=== PATIENT | female | born 1990 | race Caucasian/White ===

== ENCOUNTER 2017-03-14 09:16 | Emergency (ER) | payer OTHER ==
[~2017-03-14] VITALS: Ht 157.4 cm; Wt 61.7 kg
[~2017-03-14 09:16] MED LIST: BIRTH CONTROL1 EAC1 PO; CLARITIN5 MG/5 ML PO; DOXYCYCLINE100 M3 PO; METHERGINE0.2 MG PO; MOTRIN,RUFEN800 MG PO; NKHM PO; PERCOCET 325 MG1 TA1 PO; PRENATAL1 TA7 PO
[2017-03-14] MEDS ORDERED: CLARITIN10 MG PO (09:33)
[2017-03-14] MEDS ORDERED: KEFLEX500 M1 PO (09:46)
[2017-03-14] MEDS ORDERED: BACTRIM DS 8001 TA1 PO (09:46)
== END 2017-03-14 11:00 | disposition home or self-care (01) ==
LOC: ED 09:16
DX: L02.411 Cutaneous abscess of right axilla (principal); F17.200 Nicotine dependence, unspecified, uncomplicated; Z79.899 Other long term (current) drug therapy

== ENCOUNTER 2018-07-07 10:37 | Emergency (ER) | payer OTHER ==
[~2018-07-07] VITALS: Ht 157.4 cm; Wt 60.8 kg
[~2018-07-07 10:37] MED LIST changes: +BACTRIM DS 8001 TA1 PO; +CLARITIN10 MG PO; +KEFLEX500 M1 PO
[2018-07-07] MEDS ORDERED: ZITHROMAX250 MG PO (11:32)
== END 2018-07-07 11:47 | disposition home or self-care (01) ==
LOC: ED 10:37
DX: J40 Bronchitis, not specified as acute or chronic (principal)

== ENCOUNTER 2019-02-25 04:30 | Emergency (ER) | payer OTHER ==
[~2019-02-25] VITALS: Ht 157.4 cm; Wt 60.8 kg
[~2019-02-25 04:30] MED LIST changes: +ZITHROMAX250 MG PO
[2019-02-25] MEDS ORDERED: PENICILLIN-VK500 M1 PO (05:50)
== END 2019-02-25 05:50 | disposition home or self-care (01) ==
LOC: ED 04:30
DX: K02.9 Dental caries, unspecified (principal); F17.200 Nicotine dependence, unspecified, uncomplicated

== ENCOUNTER 2023-06-16 08:59 | Emergency (ER) | payer SELFPAY ==
[~2023-06-16] VITALS: Ht 157.4 cm; Wt 65.8 kg
[~2023-06-16 08:59] MED LIST changes: +PENICILLIN-VK500 M1 PO
[2023-06-16 09:46] LABS: BILIRUBIN Negative (Negative); BLOOD Negative (Negative); CLARITY Clear (Clear); COLOR Yellow (Yellow); GLUCOSE Negative (Negative); KETONE Negative (Negative); LEUKO ESTERASE Negative (Negative); NITRITE Negative (Negative); PH 6.5 (4.5-8.0); SPECIFIC GRAVITY <= 1.005 (1.001-1.030); UROBILINOGEN 0.2 E.U./dl (0.0-1.0)
[2023-06-16 09:54] LABS: WBC 0-2 wbc/hpf (0-5)
[2023-06-16 09:55] LABS: BACTERIA 3+
[2023-06-16 10:08] LABS: BASO # 0.1 10*3/uL (0.0-0.1); BASO % 0.8 % (0.0-1.0); EOS % 0.4 % (1.0-4.0); LYMPH # 1.4 10*3/uL (1.3-4.4); LYMPH % 15.1 % (27.0-41.0); MEAN CELL VOLUME 99.5 fl (81.0-99.0); MEAN CORPUSCULAR HGB 33.8 pg (27.0-31.0); MEAN PLATELET VOLUME 10.1 fl (9.6-12.3); MONO # 0.6 10*3/uL (0.1-1.0); MONO % 6.5 % (3.0-9.0); NEUT # 6.9 10*3/uL (2.3-7.9); NEUT % 76.9 % (47.0-73.0); PLATELET COUNT AUTOMATED 230 10*3/uL (130-400); RED BLOOD COUNT 4.32 10*6/uL (4.10-5.10); RED CELL DISTRI WIDTH 12.7 % (0-14.5)
[2023-06-16 10:35] LABS: ALKALINE PHOSPHATASE 57 U/L (46-116); BUN 10 mg/dl (9-23); CHLORIDE 112 mmol/L (98-107); LIPASE 24 U/L (12-53); POTASSIUM 3.4 mmol/L (3.4-5.1); SGPT/ALT 23 U/L (10-49)
[2023-06-16 10:36] LABS: BETA-HCG, QUANT < 3.0 mIU/mL (3-10)
[2023-06-16] MEDS ORDERED: ONDANSETRON4 MG SL (18:06)
[2023-06-16] MEDS ORDERED: MECLIZINE HCL25 M2 PO (18:06)
== END 2023-06-16 18:41 | disposition home or self-care (01) ==
LOC: ED 08:59
PROVIDERS: Emergency Medicine
DX: R42 Dizziness and giddiness (principal); R11.0 Nausea; F41.9 Anxiety disorder, unspecified; R20.2 Paresthesia of skin; J45.909 Unspecified asthma, uncomplicated; Z98.890 Other specified postprocedural states; Z79.899 Other long term (current) drug therapy

== ENCOUNTER 2023-08-20 16:33 | Emergency (ER) | payer MEDICAID ==
[~2023-08-20] VITALS: Ht 157.4 cm; Wt 63.5 kg
[~2023-08-20 16:33] MED LIST changes: +MECLIZINE HCL25 M2 PO; +ONDANSETRON4 MG SL
[2023-08-20] MEDS ORDERED: AMOX-CLAV 875-1 EACH PO ×2 (21:35)
== END 2023-08-20 21:33 | disposition home or self-care (01) ==
LOC: ED 16:33
DX: J32.9 Chronic sinusitis, unspecified (principal); H92.02 Otalgia, left ear; F41.9 Anxiety disorder, unspecified; Z98.890 Other specified postprocedural states

== ENCOUNTER 2023-08-22 14:17 | Emergency (ER) | payer MEDICAID ==
[~2023-08-22] VITALS: Ht 157.4 cm; Wt 63.5 kg
[~2023-08-22 14:17] MED LIST changes: +AMOX-CLAV 875-1 EACH PO
[2023-08-22 16:52] LABS: BASO # 0.1 10*3/uL (0.0-0.1); BASO % 0.7 % (0.0-1.0); EOS % 0.3 % (1.0-4.0); HEMATOCRIT 42.5 % (37.0-47.0); LYMPH # 2.3 10*3/uL (1.3-4.4); LYMPH % 25.5 % (27.0-41.0); MEAN CELL VOLUME 97.9 fl (81.0-99.0); MEAN CORPUSCULAR HGB 33.4 pg (27.0-31.0); MEAN CORPUSCULAR HGB CONC 34.1 g/dl (33.0-37.0); MEAN PLATELET VOLUME 10.2 fl (9.6-12.3); MONO # 0.7 10*3/uL (0.1-1.0); MONO % 7.8 % (3.0-9.0); NEUT # 5.9 10*3/uL (2.3-7.9); NEUT % 65.4 % (47.0-73.0); PLATELET COUNT AUTOMATED 227 10*3/uL (130-400); RED BLOOD COUNT 4.34 10*6/uL (4.10-5.10); RED CELL DISTRI WIDTH 11.7 % (0-14.5)
[2023-08-22 17:19] LABS: ALKALINE PHOSPHATASE 58 U/L (46-116); BUN 10 mg/dl (9-23); CHLORIDE 109 mmol/L (98-107); POTASSIUM 3.8 mmol/L (3.4-5.1); SGPT/ALT 12 U/L (5-49); TOTAL PROTEIN 7.3 gm/dL (6.0-8.0)
[2023-08-22 17:44] LABS: BILIRUBIN Negative (Negative); BLOOD Trace-Intact (Negative); CLARITY Clear (Clear); COLOR Yellow (Yellow); GLUCOSE Negative (Negative); KETONE Negative (Negative); LEUKO ESTERASE Negative (Negative); NITRITE Negative (Negative); SPECIFIC GRAVITY 1.015 (1.001-1.030); UROBILINOGEN 0.2 E.U./dl (0.0-1.0)
[2023-08-22 17:53] LABS: EPITHELIAL CELLS 16-20
[2023-08-22 17:54] LABS: BACTERIA TRACE
== END 2023-08-22 18:21 | disposition home or self-care (01) ==
LOC: ED 14:17
PROVIDERS: Nurse Practitioner
DX: J32.9 Chronic sinusitis, unspecified (principal); H92.01 Otalgia, right ear; R51.9 Headache, unspecified; M54.2 Cervicalgia; R30.0 Dysuria; F41.9 Anxiety disorder, unspecified; Z98.890 Other specified postprocedural states

== ENCOUNTER → 2023-09-14 | Outpatient (CLI) | payer MEDICAID | END | disposition home or self-care (01) | LOC: RAD 10:30 | PROVIDERS: ATTEND Nurse Practitioner Family | DX: M54.2 Cervicalgia (principal) ==

== ENCOUNTER → 2023-09-29 | Outpatient (CLI) | payer MEDICAID ==
[~2023-09-29] MED LIST changes: +CLARITIN-D 121 EACH PO; +FLONASE ALLERG9.9 ML NAS; +VIBRAMYCIN HYC100 MG PO
== END | disposition home or self-care (01) ==
LOC: MRI 00:34
PROVIDERS: ATTEND Internal Medicine
DX: R00.0 Tachycardia, unspecified (principal); R55 Syncope and collapse

== ENCOUNTER 2023-10-05 14:30 | Emergency (ER) | payer MEDICAID ==
[~2023-10-05] VITALS: Ht 157.4 cm; Wt 59.0 kg
[~2023-10-05 14:30] MED LIST changes: -CLARITIN-D 121 EACH PO; -FLONASE ALLERG9.9 ML NAS; -VIBRAMYCIN HYC100 MG PO
[2023-10-05] MEDS ORDERED: FLONASE ALLERG9.9 ML NAS (15:16)
[2023-10-05] MEDS ORDERED: CLARITIN-D 121 EACH PO (15:16)
[2023-10-05 17:15] LABS: BASO # 0.1 10*3/uL (0.0-0.1); BASO % 0.8 % (0.0-1.0); EOS # 0.1 10*3/uL (0.0-0.4); EOS % 0.8 % (1.0-4.0); HEMATOCRIT 41.5 % (37.0-47.0); LYMPH # 2.3 10*3/uL (1.3-4.4); MEAN CELL VOLUME 99.8 fl (81.0-99.0); MEAN CORPUSCULAR HGB 33.4 pg (27.0-31.0); MEAN CORPUSCULAR HGB CONC 33.5 g/dl (33.0-37.0); MEAN PLATELET VOLUME 9.7 fl (9.6-12.3); MONO # 0.6 10*3/uL (0.1-1.0); NEUT # 4.9 10*3/uL (2.3-7.9); NEUT % 62.1 % (47.0-73.0); PLATELET COUNT AUTOMATED 225 10*3/uL (130-400); RED BLOOD COUNT 4.16 10*6/uL (4.10-5.10); RED CELL DISTRI WIDTH 11.7 % (0-14.5); WHITE BLOOD COUNT 7.9 10*3/uL (4.8-10.8)
[2023-10-05 17:39] LABS: ALKALINE PHOSPHATASE 53 U/L (46-116); BUN 13 mg/dl (9-23); CHLORIDE 110 mmol/L (98-107); POTASSIUM 3.5 mmol/L (3.4-5.1); SGPT/ALT 7 U/L (5-49)
[2023-10-05] MEDS ORDERED: VIBRAMYCIN HYC100 MG PO (20:33)
== END 2023-10-05 21:02 | disposition home or self-care (01) ==
LOC: ED 14:30
PROVIDERS: Physician Assistant Medical
DX: J18.9 Pneumonia, unspecified organism (principal); J32.0 Chronic maxillary sinusitis; F41.9 Anxiety disorder, unspecified; Z98.890 Other specified postprocedural states

== ENCOUNTER → 2023-10-12 | Outpatient (CLI) | payer MEDICAID ==
[~2023-10-12] MED LIST changes: +CLARITIN-D 121 EACH PO; +FLONASE ALLERG9.9 ML NAS; +VIBRAMYCIN HYC100 MG PO
== END | disposition home or self-care (01) ==
LOC: RAD 12:16
PROVIDERS: ATTEND Internal Medicine
DX: J18.9 Pneumonia, unspecified organism (principal)

== ENCOUNTER 2023-10-22 10:21 | Emergency (ER) | payer MEDICAID ==
[~2023-10-22] VITALS: Ht 157.4 cm; Wt 58.1 kg
[2023-10-22 10:49] LABS: BASO # 0.1 10*3/uL (0.0-0.1); BASO % 1.2 % (0.0-1.0); EOS # 0.1 10*3/uL (0.0-0.4); EOS % 1.3 % (1.0-4.0); HEMATOCRIT 42.5 % (37.0-47.0); LYMPH # 1.8 10*3/uL (1.3-4.4); LYMPH % 30.1 % (27.0-41.0); MEAN CELL VOLUME 99.1 fl (81.0-99.0); MEAN CORPUSCULAR HGB 33.3 pg (27.0-31.0); MEAN CORPUSCULAR HGB CONC 33.6 g/dl (33.0-37.0); MEAN PLATELET VOLUME 9.9 fl (9.6-12.3); MONO # 0.5 10*3/uL (0.1-1.0); MONO % 8.9 % (3.0-9.0); NEUT # 3.5 10*3/uL (2.3-7.9); NEUT % 58.2 % (47.0-73.0); PLATELET COUNT AUTOMATED 260 10*3/uL (130-400); RED BLOOD COUNT 4.29 10*6/uL (4.10-5.10); RED CELL DISTRI WIDTH 11.8 % (0-14.5); WHITE BLOOD COUNT 6.1 10*3/uL (4.8-10.8)
[2023-10-22 11:09] LABS: ALKALINE PHOSPHATASE 63 U/L (46-116); BUN 14 mg/dl (9-23); CHLORIDE 111 mmol/L (98-107); POTASSIUM 3.9 mmol/L (3.4-5.1); SGPT/ALT 9 U/L (5-49); TOTAL PROTEIN 7.4 gm/dL (6.0-8.0)
[2023-10-22 11:11] LABS: BETA-HCG, QUANT < 3.0 mIU/mL (3-10)
[2023-10-22] MEDS ORDERED: LEVOFLOXACIN500 MG PO (12:48)
== END 2023-10-22 13:06 | disposition home or self-care (01) ==
LOC: ED 10:21
PROVIDERS: Emergency Medicine
DX: H60.92 Unspecified otitis externa, left ear (principal); F41.9 Anxiety disorder, unspecified; R10.2 Pelvic and perineal pain; Z98.890 Other specified postprocedural states

== ENCOUNTER → 2023-11-04 | Outpatient (CLI) | payer MEDICAID ==
[~2023-11-04] MED LIST changes: +LEVOFLOXACIN500 MG PO
== END | disposition home or self-care (01) ==
LOC: LAB 14:37
PROVIDERS: ATTEND Internal Medicine
DX: J02.9 Acute pharyngitis, unspecified (principal)

== ENCOUNTER 2023-11-07 10:02 | Emergency (ER) | payer MEDICAID ==
[~2023-11-07] VITALS: Ht 157.4 cm; Wt 57.2 kg
[2023-11-07] MEDS ORDERED: ZYRTEC ALLERGY10 MG PO (10:27)
[2023-11-07 11:56] LABS: BASO # 0.1 10*3/uL (0.0-0.1); BASO % 0.7 % (0.0-1.0); EOS # 0.1 10*3/uL (0.0-0.4); EOS % 1.3 % (1.0-4.0); HEMATOCRIT 42.5 % (37.0-47.0); LYMPH # 1.8 10*3/uL (1.3-4.4); LYMPH % 21.2 % (27.0-41.0); MEAN CELL VOLUME 99.3 fl (81.0-99.0); MEAN CORPUSCULAR HGB 33.6 pg (27.0-31.0); MEAN CORPUSCULAR HGB CONC 33.9 g/dl (33.0-37.0); MEAN PLATELET VOLUME 9.8 fl (9.6-12.3); MONO # 0.6 10*3/uL (0.1-1.0); MONO % 7.5 % (3.0-9.0); NEUT # 5.8 10*3/uL (2.3-7.9); NEUT % 69.1 % (47.0-73.0); PLATELET COUNT AUTOMATED 208 10*3/uL (130-400); RED BLOOD COUNT 4.28 10*6/uL (4.10-5.10); RED CELL DISTRI WIDTH 12.3 % (0-14.5); WHITE BLOOD COUNT 8.4 10*3/uL (4.8-10.8)
[2023-11-07 12:19] LABS: ALKALINE PHOSPHATASE 56 U/L (46-116); BUN 8 mg/dl (9-23); CHLORIDE 111 mmol/L (98-107); SGPT/ALT 9 U/L (5-49); TOTAL PROTEIN 7.2 gm/dL (6.0-8.0)
== END 2023-11-07 13:44 | disposition home or self-care (01) ==
LOC: ED 10:02
PROVIDERS: Internal Medicine
DX: M54.2 Cervicalgia (principal); R41.0 Disorientation, unspecified; M54.50 Low back pain, unspecified; F41.9 Anxiety disorder, unspecified; Z98.890 Other specified postprocedural states; Z87.891 Personal history of nicotine dependence

== ENCOUNTER 2023-12-01 11:43 | Emergency (ER) | payer MEDICAID ==
[~2023-12-01] VITALS: Wt 56.2 kg
[~2023-12-01 11:43] MED LIST changes: +ZYRTEC ALLERGY10 MG PO
[2023-12-01] MEDS ORDERED: CLEOCIN HCL300 MG PO (11:55)
[2023-12-01] MEDS ORDERED: Acetaminophen/Hydrocodone 5 MG/325 MG TABLET PO ONE (12:05)
[2023-12-01] MEDS ORDERED: IOHEXOL 300 MG/ML 100 ML VIAL IV ONE (12:10)
[2023-12-01 12:26] LABS: BASO # 0.1 10*3/uL (0.0-0.1); BASO % 0.8 % (0.0-1.0); EOS % 0.5 % (1.0-4.0); HEMATOCRIT 42.6 % (37.0-47.0); LYMPH # 1.6 10*3/uL (1.3-4.4); LYMPH % 21.2 % (27.0-41.0); MEAN CELL VOLUME 98.6 fl (81.0-99.0); MEAN CORPUSCULAR HGB 33.1 pg (27.0-31.0); MEAN CORPUSCULAR HGB CONC 33.6 g/dl (33.0-37.0); MEAN PLATELET VOLUME 10.2 fl (9.6-12.3); MONO # 0.5 10*3/uL (0.1-1.0); MONO % 6.9 % (3.0-9.0); NEUT # 5.3 10*3/uL (2.3-7.9); NEUT % 70.5 % (47.0-73.0); PLATELET COUNT AUTOMATED 217 10*3/uL (130-400); RED BLOOD COUNT 4.32 10*6/uL (4.10-5.10); RED CELL DISTRI WIDTH 11.6 % (0-14.5); WHITE BLOOD COUNT 7.6 10*3/uL (4.8-10.8)
[2023-12-01 12:44] LABS: BUN 9 mg/dl (9-23); CHLORIDE 107 mmol/L (98-107); POTASSIUM 3.6 mmol/L (3.4-5.1)
[2023-12-01] MEDS ORDERED: CLINDAMYCIN HC300 MG PO (14:38)
== END 2023-12-01 14:41 | disposition home or self-care (01) ==
LOC: ED 11:43
PROVIDERS: Physician Assistant Medical
DX: K04.7 Periapical abscess without sinus (principal); F41.9 Anxiety disorder, unspecified; Z98.890 Other specified postprocedural states

== ENCOUNTER → 2024-01-05 | Outpatient (CLI) | payer MEDICAID ==
[~2024-01-05] MED LIST changes: +CLEOCIN HCL300 MG PO; +CLINDAMYCIN HC300 MG PO
== END | disposition home or self-care (01) ==
LOC: CARD 00:42
PROVIDERS: ATTEND Internal Medicine Cardiovascular Disease
DX: I34.0 Nonrheumatic mitral (valve) insufficiency (principal); I95.1 Orthostatic hypotension

== ENCOUNTER → 2024-02-25 | Outpatient (CLI) | payer MEDICAID ==
[2024-02-26 08:10] LABS: THYROID PEROXIDASE (TPO) AB <9 IU/mL (0-34)
[2024-02-28 18:16] LABS: THYROGLOBULIN ANTIBODY <1.0 IU/mL (0.0-0.9)
== END | disposition home or self-care (01) ==
LOC: LAB 12:43
PROVIDERS: ATTEND Ophthalmology
DX: R06.3 Periodic breathing (principal)

== ENCOUNTER 2024-03-04 13:03 | Emergency (ER) | payer MEDICAID ==
[~2024-03-04] VITALS: Ht 157.4 cm; Wt 51.3 kg
== END 2024-03-04 14:13 | disposition home or self-care (01) ==
LOC: ED 13:03
DX: G89.29 Other chronic pain (principal); R51.9 Headache, unspecified; H92.03 Otalgia, bilateral; R42 Dizziness and giddiness; R20.0 Anesthesia of skin; H53.8 Other visual disturbances; F41.9 Anxiety disorder, unspecified

== ENCOUNTER → 2024-03-08 | Outpatient (CLI) | payer MEDICAID ==
[2024-03-09 14:09] LABS: SJOGREN ANTI-SS-A <0.2 AI (0.0-0.9); SJOREN AB, ANTI-SS-B <0.2 AI (0.0-0.9)
== END | disposition home or self-care (01) ==
LOC: LAB 10:34
PROVIDERS: ATTEND Internal Medicine
DX: R22.0 Localized swelling, mass and lump, head (principal)

== ENCOUNTER → 2024-03-21 | Outpatient (CLI) | payer MEDICAID | END | disposition home or self-care (01) | LOC: US 13:12 | PROVIDERS: ATTEND Nurse Practitioner Family | DX: R59.0 Localized enlarged lymph nodes (principal); R51.9 Headache, unspecified ==

== ENCOUNTER → 2024-04-05 | Outpatient (CLI) | payer MEDICAID | END | disposition home or self-care (01) | LOC: RAD 15:28 | PROVIDERS: ATTEND Internal Medicine | DX: R07.81 Pleurodynia (principal); R06.02 Shortness of breath; M54.50 Low back pain, unspecified ==

== ENCOUNTER 2024-07-17 09:00 | Emergency (ER) | payer MEDICAID ==
[2024-07-17] MEDS ORDERED: ACETAMINOPHEN 325 MG TAB PO ONE (09:25)
[2024-07-17] MEDS ORDERED: SODIUM CHLORIDE 0.9% 1,000 ML IV ONE (09:25)
[2024-07-17] MEDS ORDERED: Dexamethasone Sodium Phospha 20 MG/5 ML VIAL IV ONE (09:25)
[2024-07-17 09:54] LABS: BASO # 0.1 10*3/uL (0.0-0.1); BASO % 0.8 % (0.0-1.0); EOS # 0.1 10*3/uL (0.0-0.4); EOS % 0.9 % (1.0-4.0); LYMPH # 1.8 10*3/uL (1.3-4.4); LYMPH % 22.2 % (27.0-41.0); MEAN CELL VOLUME 102.5 fl (81.0-99.0); MEAN CORPUSCULAR HGB 33.9 pg (27.0-31.0); MEAN CORPUSCULAR HGB CONC 33.1 g/dl (33.0-37.0); MONO # 0.5 10*3/uL (0.1-1.0); MONO % 6.4 % (3.0-9.0); NEUT # 5.5 10*3/uL (2.3-7.9); NEUT % 69.6 % (47.0-73.0); PLATELET COUNT AUTOMATED 218 10*3/uL (130-400); RED BLOOD COUNT 4.39 10*6/uL (4.10-5.10); RED CELL DISTRI WIDTH 11.9 % (0-14.5)
[2024-07-17 10:23] LABS: BUN 13 mg/dl (9-23); CHLORIDE 107 mmol/L (98-107); POTASSIUM 3.7 mmol/L (3.4-5.1)
[2024-07-17] MEDS ORDERED: AMOX-CLAV 875-1 EACH PO (11:41)
[2024-07-17] MEDS ORDERED: MEDROL DOSEPAK4 MG PO (11:41)
== END 2024-07-17 11:46 | disposition home or self-care (01) ==
LOC: ED 09:00
PROVIDERS: Internal Medicine
DX: K04.7 Periapical abscess without sinus (principal); R68.84 Jaw pain; F41.9 Anxiety disorder, unspecified; Z98.890 Other specified postprocedural states

== ENCOUNTER 2025-08-26 10:33 | Emergency (ER) | payer MEDICAID ==
[~2025-08-26] VITALS: Ht 157.4 cm; Wt 61.2 kg
[~2025-08-26 10:33] MED LIST changes: +MEDROL DOSEPAK4 MG PO
[2025-08-26] MEDS ORDERED: SODIUM CHLORIDE 0.9% 1,000 ML IV ONE (11:15)
[2025-08-26 11:34] LABS: BASO # 0.1 10*3/uL (0.0-0.1); BASO % 1.0 % (0.0-1.0); EOS # 0.1 10*3/uL (0.0-0.4); EOS % 1.1 % (1.0-4.0); MEAN CELL VOLUME 99.3 fl (81.0-99.0); MEAN CORPUSCULAR HGB 33.6 pg (27.0-31.0); MEAN PLATELET VOLUME 9.8 fl (9.6-12.3); MONO # 0.6 10*3/uL (0.1-1.0); MONO % 7.2 % (3.0-9.0); NEUT # 5.1 10*3/uL (2.3-7.9); NEUT % 61.5 % (47.0-73.0); NUCLEATED RED BLOOD CELL 0.0 % (0.0-0.0); NUCLEATED RED BLOOD CELL 0.0 10*3/uL (0.0-0.0); PLATELET COUNT AUTOMATED 246 10*3/uL (130-400); RED CELL DISTRI WIDTH 11.9 % (0-14.5)
[2025-08-26 11:39] LABS: BILIRUBIN Negative (Negative); BLOOD Negative (Negative); CLARITY Cloudy (Clear); COLOR Yellow (Yellow); KETONE Negative (Negative); LEUKO ESTERASE Negative (Negative); NITRITE Negative (Negative); PH 7.0 (4.5-8.0); SPECIFIC GRAVITY <= 1.005 (1.001-1.030); UROBILINOGEN 0.2 E.U./dl (0.0-1.0)
[2025-08-26 11:47] LABS: URINE AMPHETAMINES Negative (1000ng/ml); URINE BARBITURATES Negative (200ng/ml); URINE BENZODIAZEPINES Negative (200ng/ml); URINE CANNABINOIDS (THC) Negative (50ng/ml); URINE COCAINE Negative (300ng/ml); URINE METHADONE Negative (300ng/ml); URINE OPIATES Negative (300ng/ml); URINE PHENCYCLIDINE Negative (25ng/ml)
[2025-08-26 11:56] LABS: BACTERIA 1+; WBC 0-2 wbc/hpf (0-5)
[2025-08-26 11:59] LABS: BUN 12 mg/dl (9-23)
[2025-08-26] MEDS ORDERED: diphenhydrAMINE hydrochloride 25 MG CAP PO ONE (13:00)
[2025-08-26] MEDS ORDERED: Amoxicillin/Clavulanate Pota 875 MG TAB PO ONE (13:00)
[2025-08-26] MEDS ORDERED: AMOX-CLAV 875-1 EACH PO (13:03)
== END 2025-08-26 13:14 | disposition home or self-care (01) ==
LOC: ED 10:33
DX: J02.9 Acute pharyngitis, unspecified (principal); E86.0 Dehydration; R51.9 Headache, unspecified; F41.9 Anxiety disorder, unspecified; Z20.822 Contact with and (suspected) exposure to COVID-19